=== PATIENT | female | born 2000 | race Caucasian/White ===

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

== ENCOUNTER → 2021-10-14 13:31 | Outpatient (BNVA) | payer MEDICAID, SELFPAY | PROVIDERS: PCP Family Medicine; Visit Provider Nurse Practitioner Family | DX: Z20.822 Contact with and (suspected) exposure to COVID-19 (principal) | CPT/HCPCS: 87635 ==

== ENCOUNTER 2024-07-02 13:53 | Emergency (ER) | payer MEDICAID, SELFPAY ==
[2024-07-02 14:00] VITALS: BP 122/85; PULSE 81; RESP 16; TEMP 36.7; O2SAT 100; BMI 23.0
[2024-07-02 15:21] LABS: Basophils % 0.4 %; Eosinophils # 0.1 10^3/uL (0.0-0.8); Hematocrit 45.7 % (36-47); Lymphocytes # 1.8 10^3/uL (0.8-4.8); Lymphocytes % 22.3 %; Mean Corpuscular HGB Conc 31.7 g/dL (30-55); Mean Corpuscular Hemoglobin 29.8 pg (27-33); Mean Corpuscular Volume 93.8 fl (85-98); Mean Platelet Volume 12.8 fL (7.4-10.4); Monocytes # 0.7 10^3/uL (0.2-0.9); Monocytes % 8.4 %; Neutrophils # 5.28 10^3/uL (1.8-7.7); Neutrophils % 67.5 %; Nucleated Red Blood Cells % 0 %; Platelet Count 226 10^3/cmm (157-399); Red Blood Count 4.87 10^6/uL (3.85-5.65); Red Cell Distribution Width 11.9 % (12.1-15.1); White Blood Count 7.83 10^3/uL (3.29-11.43)
[2024-07-02 15:25] LABS: HCG, Serum Qual Negative (Negative)
[2024-07-02 15:34] LABS: Alanine Aminotransferase 14 U/L (0-33); Albumin Level 4.8 g/dL (3.5-5.2); Alkaline Phosphatase 85 U/L (35-105); Anion Gap 14.4 (5-19); Aspartate Amino Transferase 26 U/L (0-32); Blood Urea Nitrogen 10 mg/dL (6-20); Calcium 9.6 mg/dL (8.5-10.5); Carbon Dioxide 24 mmol/L (22-29); Chloride 101 mmol/L (98-107); Creatinine Clr Calc Pharmacy 126.6311; Globulin 3.1 g/dL (1.3-4.6); Glomerular Filtration Rate 104.6 mL/min (90-130); Glucose 107 mg/dL (65-115); Lipase 27 U/L (13-60); Osmolality Calculated 282 mOsm/kg (285-295); Potassium 3.4 mmol/L (3.5-5.1); Sodium 136 mmol/L (136-145); Total Bilirubin 0.6 mg/dL (0.15-1.2); Total Protein 7.9 g/dL (6.6-8.7)
--- NOTE | 2024-07-02 16:27 | ED_ITS ---
HPI - Abdominal Pain 2 General: Chief Complaint: Abdominal Pain Stated Complaint: sharp pain abd Time Seen by Provider: 07/02/24 16:26 History of Present Illness: 23-year-old female comes in today with r ight lower quadrant abdominal pain. Patient points to the pelvic right inguinal area where her pain is. Review of the record noted the patient does have a history of ovarian cysts. Patient does admit the pain is similar to her prior ovarian cyst. Patient was concerned due to the pain being worse. Patient appears nontoxic. Patient denies any other medical issues. Related Data Date of Last Menstrual Period: 06/25/24 Previous Rx's Medication Instructions Recorded ketorolac 10 mg tablet 10 mg PO Q6H PRN pain #10 tabs 07/02/24 Allergies Allergy/AdvReac Type Severity Reaction Status Date / Time No Known Allergies Allergy Verified 10/14/21 13:30 Review of Systems 2 General: Reports: 10 or more systems reviewed and unremarkable except in HPI and below PFSH ED 2 PFSH: Family History (Updated 11/28/19 @ 13:16 by Martine Zapata RN) Family/Other Breast cancer maternal aunt Social History (Updated 11/28/19 @ 13:16 by Martine Zapata RN) Smoking and tobacco/nicotine status: never used tobacco/nicotine Alcohol intake: never Substance/Drug Use: never Female Reproductive History: Date of last menstrual period: 06/25/24 Physical Exam 2 Const: COMMON NORMALS: alert HENMT: COMMON NORMALS: normocephalic HEAD & SCALP: normocephalic Neck/C-Spine: COMMON NORMALS: full ROM Resp: COMMON NORMALS: normal respiratory effort Cardio: COMMON NORMALS: regular rate RATE: regular rate GI: COMMON NORMALS: Soft to palpation PALPATION: Yes Soft to palpation and Yes Tenderness to palpation present (GI) Details: RLQ : COMMON NORMALS: Yes no CVA tenderness BLADDER/KIDNEY EXAM: Yes no CVA tenderness Back/Pelvis: COMMON NORMALS: no CVA tenderness Extremity: COMMON NORMALS: normal to inspection Neuro: SENSORIUM/ORIENTATION: Yes alert Skin: COMMON NORMALS: turgor normal GENERAL SKIN EXAM: turgor normal Course 2 Vital Signs: Vital signs: Vital Signs Temperature 98.1 F 07/02/24 14:00 Pulse Rate 69 07/02/24 16:33 Respiratory Rate 16 07/02/24 16:33 Blood Pressure 112/76 07/02/24 16:33 Pulse Oximetry 100 07/02/24 16:33 Oxygen Delivery Me thod Room Air 07/02/24 16:33 MDM - Abdominal Pain Medical Decision Making 23-year-old female comes in today with right lower quadrant abdominal pain. Respirations are even lungs are clear to auscultation. Abdomen soft with some right lower quadrant tenderness. No rebound tenderness. Vital signs are normal. Differential diagnosis includes not limited to ovarian cyst, appendicitis, ovarian torsion, renal calculi. CBC and CMP were unremarkable. Urinalysis was normal. Patient was not . Ultrasound of the pelvis noted ovarian cyst on the left side and some free fluid on the right side. Believe patient most likely has pain secondary to the ovarian cyst. No signs of appendicitis were noted. No signs of severe infection or hernia was noted. Recommend follow-up with [facility] for further evaluation of ovarian cyst. Ultrasound ruled out ovarian torsion. Lab Data 07/02/24 15:00 07/02/24 15:00 Labs/Radiology: Laboratory Results WBC 7.83 10^3/uL (3.29-11.43) 07/02/24 15:00 RBC 4.87 10^6/uL (3.85-5.65) 07/02/24 15:00 Hgb 14.50 g/dL (11.27-16.99) 07/02/24 15:00 Hct 45.7 % (36-47) 07/02/24 15:00 MCV 93.8 fl (85-98) 07/02/24 15:00 MCH 29.8 pg (27-33) 07/02/24 15:00 MCHC 31.7 g/dL (30-55) 07/02/24 15:00 RDW 11.9 % (12.1-15.1) L 07/02/24 15:00 Plt Count 226 10^3/cmm (157-399) 07/02/24 15:00 MPV 12.8 fL (7.4-10.4) H 07/02/24 15:00 Neut % (Auto) 67.5 % 07/02/24 15:00 Lymph % (Auto) 22.3 % 07/02/24 15:00 [place] % (Auto) 8.4 % 07/02/24 15:00 Eos % (Auto) 1.0 % 07/02/24 15:00 Baso % (Auto) 0.4 % 07/02/24 15:00 Neut # (Auto) 5.28 10^3/uL (1.8-7.7) 07/02/24 15:00 Lymph # (Auto) 1.8 10^3/uL (0.8-4.8) 07/02/24 15:00 [place] # (Auto) 0.7 10^3/uL (0.2-0.9) 07/02/24 15:00 Eos # (Auto) 0.1 10^3/uL (0.0-0.8) 07/02/24 15:00 Baso # (Auto) 0.0 10^3/uL (0.0-0.1) 07/02/24 15:00 Nucleated RBC % (auto) 0 % 07/02/24 15:00 Nucleated RBCs # 0.0 /100WBC 07/02/24 15:00 Sodium 136 mmol/L (136-145) 07/02/24 15:00 Potassium 3.4 mmol/L (3.5-5.1) L 07/02/24 15:00 Chloride 101 mmol/L (98-107) 07/02/24 15:00 Carbon Dioxide 24 mmol/L (22-29) 07/02/24 15:00 Anion Gap 14.4 (5-19) 07/02/24 15:00 BUN 10 mg/dL (6-20) 07/02/24 15:00 Creatinine 0.7 mg/dL (0.5-0.9) 07/02/24 15:00 GFR Calculation 104.6 mL/min (90-130) 07/02/24 15:00 Glucose 107 mg/dL (65-115) 07/02/24 15:00 Calculated Osmolality 282 mOsm/kg (285-295) L 07/02/24 15:00 Calcium 9.6 mg/dL (8.5-10.5) 07/02/24 15:00 Total Bilirubin 0.6 mg/dL (0.15-1.2) 07/02/24 15:00 AST 26 U/L (0-32) 07/02/24 15:00 ALT 14 U/L (0-33) 07/02/24 15:00 Alkaline Phosphatase 85 U/L (35-105) 07/02/24 15:00 Total Protein 7.9 g/dL (6.6-8.7) 07/02/24 15:00 Albumin 4.8 g/dL (3.5-5.2) 07/02/24 15:00 Globulin 3.1 g/dL (1.3-4.6) 07/02/24 15:00 Lipase 27 U/L (13-60) 07/02/24 15:00 HCG, Qual Negative (Negative) 07/02/24 15:00 Urine Color [place] (Yellow) A 07/02/24 15:55 Urine Appearance Cloudy (CLEAR) A 07/02/24 15:55 Urine pH 5.5 (5-7) 07/02/24 15:55 Ur Specific Rudy 1.033 (1.005-1.030) H 07/02/24 15:55 Urine Protein 1+ (Negative) A 07/02/24 15:55 Urine Glucose (UA) Negative (Normal) 07/02/24 15:55 Urine Ketones Trace (Negative) 07/02/24 15:55 Urine Blood Negative (Negative) 07/02/24 15:55 Urine Nitrate Negative (Negative) 07/02/24 15:55 Urine Bilirubin 1+ (Negative) H 07/02/24 15:55 Urine Urobilinogen 1.0 mg/dL (Negative) 07/02/24 15:55 Ur Leukocyte Esterase Trace (Negative) A 07/02/24 15:55 Urine RBC 0-2 /hpf (0-2) 07/02/24 15:55 Urine WBC 0-5 /hpf (0-5) 07/02/24 15:55 Ur Squamous Epith Cells 6-10 /hpf (0-5) 07/02/24 15:55 Calcium Oxalate Crystal 5-10 /hpf H 07/02/24 15:55 Amorphous Sediment Not Reportable 07/02/24 15:55 Urine Bacteria 1+ /hpf (NONE) H 07/02/24 15:55 Hyaline Casts 11.16 /lpf 07/02/24 15:55 Urine Mucus 2+ /hpf 07/02/24 15:55 XR interpretation done by ED provider, pending radiology final review Discharge Plan Discharge Patient Disposition: Home Clinical Impression: Ovarian cyst Qualifiers: Laterality: unspecified laterality Qualified Code(s): N83.209 - Unspecified ovarian cyst, unspecified side Condition: Stable Prescriptions: New ketorolac 10 mg tablet 10 mg PO Q6H PRN (Reason: pain) Qty: 10 0RF Rx Instructions: maximum total duration of 5 days from all oral, intranasal, or parenteral formulations Discharge Orders: Discharge ED (Routine); Ordered 07/02/24 Ordered By: Hossein Morales Referrals: Jeffery Velasquez MD [Primary Care Provider] - Discharge Diet: Usual diet Discharge Activity: Increase activity as tolerated Patient Instructions: Ruptured Ovarian Cyst (ED) Activity Restrictions/Additional Instructions: Home and rest. Drink plenty water and fluids. Use ice or heat to the area to help with pain. Take the ketorolac As needed for severe pain. Follow-up with primary care for further instructions. Follow-up with [facility] for further evaluation of ovarian cysts. Coding Level of Care Code ED [facility] [employer] for Ameya Min
[2024-07-02 16:33] VITALS: BP 112/76; PULSE 69; RESP 16; O2SAT 100
--- NOTE | 2024-07-02 16:34 | USR_ITS ---
PROCEDURE INFORMATION: Exam: US Pelvis, Transvaginal, Non-Obstetric Exam date and time: 07/02/2024 5:22 PM Age: 23 years old Clinical indication: Pelvic pain; Additional info: Right pelvic pain, probable ovarian cyst TECHNIQUE: Imaging protocol: Real-time transvaginal pelvic (non-obstetric) ultrasound with image documentation. Transvaginal imaging was used for better evaluation of the endometrium, adnexa, and/or cervix. COMPARISON: US pelvic complete* [id number] 03/19/2020 3:07 PM FINDINGS: Uterus: Uterus is anteverted, measuring 6.9 x 2.3 x 3.5 cm. Endometrium measures 4 mm in thickness. Right ovary/adnexa: Right ovary measures 3.4 x 2.4 x 2.4 cm. Flow is visualized. No evidence of adnexal mass. Left ovary/adnexa: Left ovary measures 3.9 x 2.4 x 2.5 cm. Flow is visualized. No evidence of adnexal mass. Dominant 1.6 cm follicle. Intraperitoneal space: No significant free fluid. US/US transvaginal [id number] IMPRESSION: 1. Normal flow in both ovaries. No evidence of torsion.
[2024-07-02 16:38] LABS: Add Urine Microscopic? NO
[2024-07-02 16:40] LABS: Bilirubin Urine 1+ (Negative); Blood Urine Negative (Negative); Glucose Urine UA Negative (Normal); Ketones Urine Trace (Negative); Leukocyte Esterase Urine Trace (Negative); Nitrate Urine Negative (Negative); Protein Urine 1+ (Negative); Urine Appearance Cloudy (CLEAR); pH Urine 5.5 (5-7)
[2024-07-02 16:44] LABS: Bacteria Urine 1+ /hpf; Hyaline Casts Urine 11.16 /lpf; RBC Urine 0-2 /hpf (0-2); WBC Urine 0-5 /hpf (0-5)
[2024-07-02 16:45] LABS: Specific Gravity, Urine 1.033 (1.005-1.030); Urine Color Orange (Yellow)
[2024-07-02 16:53] LABS: Mucus Urine 2+ /hpf; UA Slide Review UA Slide Review Perf
[2024-07-02 16:55] LABS: Charge for UA Resulting for Rev
--- NOTE | 2024-07-02 17:04 | PC.NURSE ---
in gown, pelvic bed, bladder empty
[2024-07-02 18:11] VITALS: BP 111/70; PULSE 72; O2SAT 98
--- NOTE | 2024-07-03 08:21 | DCPLANNER ---
messaged [facility] for er f/u
== END 2024-07-02 18:12 | disposition home or self-care (01) ==
PROVIDERS: Emergency Medicine; Emergency Provider Nurse Practitioner Family; PCP Family Medicine
DX: N83.209 Unspecified ovarian cyst, unspecified side (principal)
CPT/HCPCS: 36415; 76830; 80053; 81003; 83690; 84703; 85025; 99284

== ENCOUNTER → 2024-10-12 13:38 | Outpatient (BNVA) | payer OTHER, SELFPAY | PROVIDERS: PCP Family Medicine; Visit Provider Nurse Practitioner Women's Health | DX: Z87.440 Personal history of urinary (tract) infections (principal) | CPT/HCPCS: 81000 ==

== ENCOUNTER → 2025-09-12 10:53 | Outpatient (BNVA) | payer OTHER, SELFPAY | PROVIDERS: PCP Family Medicine; Visit Provider Family Medicine | DX: R10.9 Unspecified abdominal pain (principal) | CPT/HCPCS: 86003; 86008 ==

== ENCOUNTER → 2025-09-13 16:22 | Outpatient (BNVA) | payer OTHER, SELFPAY | PROVIDERS: PCP Family Medicine; Visit Provider Emergency Medicine | DX: J02.9 Acute pharyngitis, unspecified (principal) | CPT/HCPCS: 87070; 87071; 87880 ==